=== PATIENT | female | born 1940 | race Caucasian/White ===

== ENCOUNTER → 2017-07-02 | Outpatient (CLI) | payer OTHER, BC ==
[~2017-07-02] MED LIST: ADVIN50/60 INH; ALBUAER19 INH; ASPI81TA21 PO; CLR10 PO; FLUT0.15 NAE; HYDR5SYP11 PO; IPRASOL4 INH; LEVO88TA22 PO; MONT1TAB3 PO; POLY99.02 OP; PRED-603 PO; ROSU5TAB PO; SALI1SPR3 NAE; SPRIN/30 INH; SYMIN160 INH; TNR25 PO
--- NOTE | 2017-07-02 14:04 | DIAGNOSTIC IMAGING REPORT ---
(CHEST) THORAX WITHOUT CLINICAL HISTORY: R91.8 Opacity of lung on imaging [id number] Ground glass opacity COMPARISON STUDY: Outside CT scan dated 07/07/2016 , 10/08/2015 CT DOSE: 407.16 mGy.cm TECHNIQUE: CT of the thorax was performed from the thoracic inlet to the lung bases. Images are reviewed in the axial, sagittal, and coronal planes. IV contrast was not administered for this examination. A dose lowering technique was utilized adhering to the principles of ALARA. FINDINGS: Thyroid: The right lobe of the thyroid may be surgically absent. There is a suspected 22 mm left lobe thyroid nodule. Thoracic aorta: The thoracic aorta is normal in course and caliber, noting standard 3 vessel arch anatomy. Heart: There are minimal aortic calcifications. There is no cardial effusion. Lungs and pleural spaces: No pleural effusions are visualized. There are multiple bilateral scattered subcentimeter solid pulmonary nodules, the largest of which is located within the right lower lobe on image #[id number]. This nodule measures 4 mm. Many of the nodules were not present on the preceding examination. In addition there is a partially solid and groundglass 15 mm right lower lobe pulmonary nodule as visualized on image #[id number]. This was not identified on the preceding study. Mediastinum: There is no evidence of pathologic mediastinal lymphadenopathy Sandra: There is no evidence of pathologic hilar adenopathy given the limitations of a noncontrast study. Axilla: Clear. Upper abdomen: Partially visualized upper abdominal viscera is within normal limits. Skeletal structures: There are no lytic or blastic osseous lesions. IMPRESSION: 1. Multiple bilateral subcentimeter solid pulmonary nodules. The largest measures 4 mm. Many of the nodules are not present on the preceding study 2. Partially solid and groundglass right lower lobe 15 mm pulmonary nodule 3. No evidence of pathologic adenopathy 4. 3-6 month follow-up CT scanning is recommended. 5. Suspected absent right lobe of the thyroid. Multinodular left lobe of the thyroid with a dominant 22 mm nodule Please refer to below summary of Fleischner criteria recommendations for follow-up of incidental CT nodules (Cl Bustamante, Guidelines for management of small pulmonary nodules detected on CT scans: A statement from the Fleischner Society, Radiology 237: 773-325 2017.) SOLID NODULES Solitary nodule size: <6 mm * low risk patients: no follow-up needed * high risk patients: optional CT at 12 months Solitary nodule size: 6-8 mm * low risk patients: follow-up at 6-12 months, then consider further follow-up at 18-24 months * high risk patients: initial follow-up CT at 6-12 months and then at 18-24 months if no change Solitary nodule size: >8 mm * either low or high risk patients - consider follow-up CT at 3 months, and/or CT-PET, and/or biopsy Multiple nodules size: <6 mm * low risk patients: no routine follow-up * high risk patients: optional CT at 12 months Multiple nodules size: 6-8 mm * low risk patients: follow-up at 3-6 months, then consider further follow-up at 18-24 months * high risk patients: follow-up at 3-6 months, then at 18-24 months if no change Multiple nodules size: >8 mm * low risk patients: follow-up at 3-6 months, then consider further follow-up at 18-24 months * high risk patients: follow-up at 3-6 months, then at 18-24 months if no change Note: newly detected indeterminate nodule in persons 35 years of age or older. * low risk patients: minimal or absent history of smoking and/or other known risk factors * high risk patients: history of smoking or of other known risk factors (e.g. first degree relative with lung cancer, or exposure to asbestos, radon, uranium) * if a nodule up to 8 mm is partly solid or is ground glass further follow-up is required after 24 months to exclude possible slow growing adenocarcinoma (PRAVEEN) SUBSOLID NODULES Solitary pure ground-glass nodule * nodule size <6 mm - no CT follow-up required * nodule size >=6 mm - follow-up CT at 6-12 months, then every 2 years until 5 years Solitary part-solid nodule * nodule size <6 mm - no CT follow-up required * nodule size >=6 mm - follow-up CT at 3-6 months. If unchanged, and solid component remains <6 mm, then annual follow-up for 5 years Multiple subsolid nodules * nodule size <6 mm - follow-up CT at 3-6 months, consider further follow-up at 2 and 4 years if stable * nodule size >=6 mm - follow-up CT at 3-6 months, subsequent management based on the most suspicious nodule(s) Electronically signed by: Chuckie Oviedo M.D. 07/02/2017 2:03 PM Dictated Date/Time: 07/02/2017 1:50 PM
== END | disposition home or self-care (01) ==
LOC: C.CTS 13:37
PROVIDERS: ATTEND Physician Assistant
DX: R91.8 Other nonspecific abnormal finding of lung field (principal)

== ENCOUNTER → 2017-10-26 | Outpatient (CLI) | payer BC, OTHER ==
--- NOTE | 2017-10-27 07:35 | DIAGNOSTIC IMAGING REPORT ---
CT SCAN OF THE CHEST WITHOUT IV CONTRAST CLINICAL HISTORY: Follow-up groundglass lesion. COMPARISON STUDY: Chest CT scans dated 07/02/2017, 10/08/2015, and 02/02/2009. Thyroid ultrasound dated 03/16/2013. TECHNIQUE: CT scan of the thorax was performed from the thoracic inlet to the upper abdomen. Images are reviewed in the axial, sagittal, and coronal planes. IV contrast was not administered for this examination as per the referring clinician. A dose lowering technique was utilized adhering to the principles of ALARA. CT DOSE: 287.80 mGy.cm FINDINGS: Thyroid: The left lobe of the thyroid gland is enlarged and heterogeneous. Large low-attenuation nodules are suggested and measure up to 2.5 cm. The right lobe appears diminutive. These were better characterized on previous thyroid ultrasounds. Thoracic aorta: There is mild atherosclerotic calcification of the thoracic aorta, which is normal in caliber and demonstrates standard 3-vessel arch anatomy. Heart: The heart is mildly enlarged and there is trace pericardial fluid. The aortic valve leaflets are densely calcified. There are scattered coronary artery calcifications. Lungs and pleural spaces: Foci of linear atelectasis versus scarring are present in the lingula. There is no airspace consolidation or pleural effusion. The trachea and central airways are patent. Groundglass change in the right lower lobe seen on 07/02/2017 has resolved. No groundglass lesion is identified on today's examination. Additional small foci of nodularity described previously have resolved and were likely on an inflammatory basis. No new nodules are seen. Mediastinum: There are scattered subcentimeter mediastinal lymph nodes. These are not pathologically enlarged by size criteria. Sandra: Normal assessed without IV contrast. Axillae: There is no axillary lymphadenopathy. Upper abdomen: There is a tiny hiatal hernia. Partially visualized upper abdominal viscera is otherwise within normal limits. Skeletal structures: The skeletal structures are osteopenic. Degenerative change is noted throughout the thoracic spine and shoulders. A large posterior disc osteophyte complex is seen at T10-T11. No lytic or blastic bony lesions are seen. IMPRESSION: 1. The groundglass focus in the right lower lobe as well as additional small foci of nodularity seen on 07/02/2017 have resolved. These were likely on an infectious/inflammatory basis. 2. No new or concerning pulmonary lesion is identified. 3. There is no airspace consolidation or pleural effusion. 4. Additional findings as above. Electronically signed by: Yogi De La Cruz M.D. 10/27/2017 7:34 AM Dictated Date/Time: 10/27/2017 7:27 AM
== END | disposition home or self-care (01) ==
LOC: C.CTS 12:35
PROVIDERS: ATTEND Physician Assistant
DX: R91.8 Other nonspecific abnormal finding of lung field (principal)

== ENCOUNTER → 2018-01-29 | Outpatient (CLI) | payer OTHER, BC ==
[~2018-01-29] MED LIST changes: +ASPI-319 PO; -ASPI81TA21 PO; +SALI-3 NAE; -SALI1SPR3 NAE
== END | disposition home or self-care (01) ==
LOC: C.PATHSPEC 17:12
PROVIDERS: ATTEND Dermatology
DX: C44.91 Basal cell carcinoma of skin, unspecified (principal)